=== PATIENT | male | born 1960 | race Hispanic/Latino ===

== ENCOUNTER 2023-03-27 10:28 | Emergency (ER) | payer OTHER ==
[~2023-03-27] VITALS: Ht 160 cm; Wt 77.1 kg
[2023-03-27 10:45] VITALS: BP 136/85; PULSE 74; RESP 16; O2SAT 98
[2023-03-27] MEDS ORDERED: IBUPROFEN 600 MG TABLET PO ONE (11:00)
[2023-03-27] MEDS ORDERED: IBUP-2070 PO (12:44)
[2023-03-27] MEDS ORDERED: KETOROLAC 30MG VIAL (30MG/ML) IM ONE ×2 (13:00)
== END 2023-03-27 13:09 | disposition home or self-care (01) ==
LOC: EDH 10:28
DX: S93.491A Sprain of other ligament of right ankle, initial encounter (principal); M19.90 Unspecified osteoarthritis, unspecified site; Z90.49 Acquired absence of other specified parts of digestive tract; X58.XXXA Exposure to other specified factors, initial encounter; Y93.89 Activity, other specified; Y92.89 Other specified places as the place of occurrence of the external cause; Y99.8 Other external cause status
CPT/HCPCS: 99284; 73610; 73590; 96372; J1885